=== PATIENT | female | born 1945 | race Caucasian/White ===

== ENCOUNTER 2016-10-18 00:50 | Emergency (ER) | payer MEDICARE, OTHER ==
[~2016-10-18] VITALS: Ht 160 cm; Wt 75.0 kg
[2016-10-18 00:59] VITALS: BP 166/86; PULSE 104; RESP 18; TEMP 99.3; O2SAT 94
--- NOTE | 2016-10-18 01:32 | PD ---
HPI Chief Complaint: Dizziness Time Seen by Provider: 01:08 Travel History International Travel<30 days: No Contact w/Intl Traveler<30days: No Traveled to known affect area: No History of Present Illness HPI Patient is 71-year-old female with a history of vertigo presents emergency department for a fall she experienced earlier this morning after vertiginous episode. Patient states she was in bed got up to go to the bathroom and she felt very dizzy and nauseous lasting for only a few seconds. She states that she went to grab onto something the wall and it wasn't there and she fell landing on her bottom. She has no complaints currently. She states that her vertigo is resolved. She states this happened to her last time approximately a year ago and her physician diagnosed her with vertigo. States that she did have a CAT scan of her head at that time which was negative. She's never had be admitted. No history of strokes. No history of focalized weakness or fevers. Patient denies adamantly hitting her head or her neck. She states she landed on soft carpet. The patient stated that she called 911 today because her has Alzheimer' s and can't get her up off the floor. She really just needed to lift off the floor. She was transported to [place]. Patient states she has otherwise had some cough and congestion over the past few days but denies any chest pain or shortness of breath. States no fevers she thinks is just a regular cold. PFSH Past Medical History Arthritis: Yes Anxiety: Yes Diabetes: Yes Patient Takes Glucophage: No Diminished Hearing: No Hypertension: Yes Tetanus Vaccination: Unknown Influenza Vaccination: Yes Past Surgical History Abdominal Surgery: Yes (lap band surgery) Cholecystectomy: Yes Hysterectomy: Yes Other Surgery: Yes (back surgery) Social History Alcohol Use: No Tobacco Use: No Allergies-Medications (Allergen,Severity, Reaction): Coded Allergies: Sulfa (Verified Allergy, Severe, 10/18/16) vertigo Review of Systems Except as stated in HPI: all other systems reviewed are Neg Physical Exam Narrative GENERAL: Well-developed well-nourished no apparent distress SKIN: Focused skin assessment warm/dry. HEAD: Atraumatic. Normocephalic. EYES: Pupils equal and round. No scleral icterus. No injection or drainage. ENT: No nasal bleeding or discharge. Mucous membranes pink and moist. NECK: Trachea midline. No JVD. CARDIOVASCULAR: Regular rate and rhythm. No murmur appreciated. RESPIRATORY: No accessory muscle use. Clear to auscultation. Breath sounds equal bilaterally. GASTROINTESTINAL: Abdomen soft, non-tender, nondistended. Hepatic and splenic margins not palpable. MUSCULOSKELETAL: No obvious deformities. No clubbing. No cyanosis. No edema. NEUROLOGICAL: Awake and alert and oriented, cranial nerves II through XII intact and nonfocal, 5 out of 5 strength in all 4 extremities, and relates even narrow based gait. Cerebellar testing with [id number] and heel rodriguez testing are negative. PSYCHIATRIC: Appropriate mood and affect; insight and judgment normal. Data Data Last Documented VS Vital Signs Date Time Temp Pulse Resp B/P Pulse Ox O2 Delivery O2 Flow Rate FiO2 10/18/16 02:26 99 18 160/82 96 10/18/16 00:59 99.3 Orders Acetaminophen (Tylenol) (10/18/16 02:15) [facility] Medical Decision Making Medical Screen Exam Complete: Yes Emergency Medical Condition: Yes Interpretation(s) EKG shows normal sinus rhythm normal axis and normal R-wave progression. No concerning ST-T changes. Intervals within normal limits. This is a normal EKG. Differential Diagnosis Vertigo, pneumonia highly unlikely, cerebellar stroke unlikely. Narrative Course This 71-year-old female presents with a fall after vertiginous episode. Patient states that she call 911 just to get helped off the ground and she was transported. She has no complaints currently. I discussed with her that given that this happened to her year ago and she was diagnosed with vertigo it is reasonable consider vertiginous episode in indeed she has no cerebellar signs. I suggested to her that we should consider admission for a cerebellar TIA which she would like to go home. She is here on vacation currently states this feels like every vertiginous episode she's had in the past. I think this is reasonable. I discussed that she does need to follow up with her primary care physician as soon as possible. At the end of our conversation patient states she did have a mild headache, I suggested a CAT scan of her head and she declined. She was given Tylenol. She stable for discharge. Her that if she should change her mind and would like additional workup she is welcome to return to emergency department anytime. Diagnosis Primary Impression: Vertigo Disposition: 01 DISCHARGE HOME Condition: Stable Dallin Calderon MD Oct 18, 2016 01:32
[2016-10-18] MEDS ORDERED: ACETAMINOPHEN 500 MG CPLT PO ONE (02:15)
[2016-10-18 02:26] VITALS: BP 160/82
--- NOTE | 2016-10-18 17:32 | EKG ---
Date Performed: 10/18/2016 Time Performed: 01:14:20 PTAGE: 71 years EKG: Sinus rhythm NORMAL ECG NO PREVIOUS TRACING DOCTOR: Lucy Eaton Interpretating Date/Time 10/18/2016 17:31:40
== END 2016-10-18 02:28 | disposition home or self-care (01) ==
LOC: NEPC 00:50
DX: R42 Dizziness and giddiness (principal); E11.9 Type 2 diabetes mellitus without complications; I10 Essential (primary) hypertension
CPT/HCPCS: 93005; 99283